=== PATIENT | female | born 1975 | race Caucasian/White ===

== ENCOUNTER 2018-05-02 09:36 | Emergency (ER) | payer MEDICAID ==
[2018-05-02 09:49] VITALS: BP 111/75; PULSE 89; RESP 18; TEMP 99.3; O2SAT 98
--- NOTE | 2018-05-02 11:15 | C.PDOC ---
History Of Present Illness 43 yo female c/o right eye lid swelling for 4 days. Reports that it "started like a stye, but then I scratched it." Today she notes the swelling increased with discharge for the area. Denies trauma, FB sensation, change in vision, diplopia, blurry vision or fever. Pt wears glasses, no contacts. Time Seen by Provider: 05/02/18 11:01 Chief Complaint (Nursing): Eye Problem History Per: Patient History/Exam Limitations: no limitations Onset/Duration Of Symptoms: Days Wears Contact Lens?: No Past Medical History Vital Signs: Last Vital Signs Temp 99.3 F 05/02/18 09:46 Pulse 89 05/02/18 09:46 Resp 18 05/02/18 09:46 BP 111/75 05/02/18 09:46 Pulse Ox 98 05/02/18 09:46 Family History: States: Unknown Family Hx - Social History Hx Tobacco Use: Yes Hx Alcohol Use: No Hx Substance Use: No - Immunization History Hx Tetanus Toxoid Vaccination: No Hx Influenza Vaccination: No Hx Pneumococcal Vaccination: No Review Of Systems Except As Marked, All Systems Reviewed And Found Negative. Eyes: Positive for: Eyelid Inflammation, Redness Physical Exam - Physical Exam Appears: Well, Non-toxic, No Acute Distress Skin: Normal Color, Warm, Dry Head: Atraumatic, Normacephalic Eye(s): bilateral: PERRL, EOMI, Other ((+) swelling and erythema to the lower lid and inferiorly. (+) pointing at the lid margin), left: Normal Inspection Nose: Normal Oral Mucosa: Moist Neck: Normal, Normal ROM, Supple Chest: Symmetrical Cardiovascular: Rhythm Regular Respiratory: Normal Breath Sounds, No Accessory Muscle Use Back: Normal Inspection Extremity: Normal ROM Neurological/Psych: Oriented x3, Normal Speech, Normal Cognition ED Course And Treatment O2 Sat by Pulse Oximetry: 98 Progress Note: Pt was instructed warm compresses and follow up with her eye doctor in 1-2 days. Discussed return precautions. Disposition - Disposition Referrals: Son Alfaro [Staff Provider] - Disposition: HOME/ ROUTINE Disposition Time: 11:11 Condition: STABLE Additional Instructions: Apply warm compresses to the area. Follow up with your eye doctor in 1-2 days. Return to ER if symptoms persist or worsen. Prescriptions: Clindamycin [Cleocin] 300 mg PO QID #28 cap Tobramycin 0.3% [Tobrex] 0.5 in OP TID #1 tube Instructions: Mckay (Hordeolum) - Clinical Impression Clinical Impression: Hordeolum externum (stye), Cellulitis
== END 2018-05-02 11:40 | disposition home or self-care (01) ==
LOC: C.ER 09:36
DX: H00.012 Hordeolum externum right lower eyelid (principal); H00.032 Abscess of right lower eyelid